=== PATIENT | female | born 2000 | race Two or more races ===

== ENCOUNTER 2024-11-05 15:48 | Emergency (ER) | payer OTHER ==
[~2024-11-05] VITALS: Ht 160 cm; Wt 54.4 kg
[2024-11-05] MEDS ORDERED: HYOSCYAMINE SULFATE 0.125 MG TAB.SUBL SL ONE (17:30)
[2024-11-05] MEDS ORDERED: MAG HYDROX/ALUMINUM HYD/SIMETH 30 ML BLIST.PACK PO ONE ×2 (17:30→17:37)
[2024-11-05] MEDS ORDERED: HYOSCYAMINE SULFATE 0.125 MG TAB.SUBL ONE (17:37)
[2024-11-05 18:11] LABS: BASO % 0.4 % (0.1-1.2); EOS # 0.02 (0.04-0.54); EOS % 0.4 % (0.7-7.0); HEMOGLOBIN 13.7 g/dL (11.2-15.7); LYMPH # 1.25 (1.18-3.74); LYMPH % 24.2 % (19.3-53.1); MEAN CORPUSCULAR HEMOGLOBIN 30.6 pg (25.6-32.2); MONO # 0.53 (0.24-0.82); MONO % 10.3 % (4.7-12.5); NEUT # 3.33 (1.56-6.13); NEUT % 64.5 % (34.0-71.1); PLATELET COUNT 283 K/uL (163-369); RED BLOOD COUNT 4.47 M/uL (3.93-5.22); RED CELL DISTRIBUTION WIDTH 11.9 % (11.6-14.4)
[2024-11-05 18:22] LABS: PH,URINE 6.5 (5.0-8.0); URINE APPEARANCE Clear; URINE BILIRRUBIN Negative (NEGATIVE); URINE BLOOD Large; URINE COLOR Yellow; URINE GLUCOSE Negative (NEGATIVE); URINE KETONE Trace (NEGATIVE); URINE LEUKOCYTE Trace; URINE NITRATE Negative; URINE PROTEIN Negative (NEGATIVE); URINE UROBILINOGEN 0.2 E.U./dl
[2024-11-05 18:23] LABS: URINE EPITHELIAL CELLS 5.6 uL (0.0-38.8); URINE RBC 130.6 uL (0.0-20.8); URINE WBC 21.6 uL (0.0-23.2)
[2024-11-05 18:25] LABS: INFLUENZA A AG NEGATIVE (NEGATIVE)
[2024-11-05 18:26] LABS: COVID-19 AG NEGATIVE (NEGATIVE)
[2024-11-05 18:32] LABS: CALCIUM 8.5 mg/dL (8.5-10.1); CREATININE SERUM 0.79 mg/dL (0.55-1.02); GFR 87.97; POTASSIUM 3.42 mEq/L (3.5-5.1)
== END 2024-11-05 20:56 | disposition home or self-care (01) ==
LOC: ER 15:54
PROVIDERS: Emergency Medicine
DX: K29.70 Gastritis, unspecified, without bleeding (principal); Z20.822 Contact with and (suspected) exposure to COVID-19